=== PATIENT | male | born 1965 ===

== ENCOUNTER 2017-02-15 12:11 | Emergency (ER) | payer OTHER ==
[2017-02-15 12:16] VITALS: BP 147/77; PULSE 71; RESP 16; TEMP 97.1; O2SAT 98
--- NOTE | 2017-02-15 12:45 | ED PDOC ---
HPI: Wound Care - HPI Time Seen by Provider: 02/15/17 12:16 Chief Complaint (Nursing): Trauma Chief Complaint (Provider): Head Injury History Per: Patient History Of Present Illness: Trevor Webb, a 51 year old male presents to the with an injury to his head. The patient states that while he was at work a piece of metal fell on his head and he sustained a laceration. Patient is unsure of whether or not his tetanus is up to date. Denies loss of consciousness. Exam Limitations: no limitations Onset/Duration Of Symptoms: Hrs Current Symptoms Are (Timing): Still Present Quality Of Symptoms: Painful Severity: Moderate Pain Scale Rating Of: 6 Additional Complaint(s): Pt denies headache and states the scalp is hurting. No nausea or vomiting. Past Medical History Reviewed: Historical Data, Nursing Documentation, Vital Signs Vital Signs: Last Vital Signs Temp 97.1 F L 02/15/17 12:14 Pulse 71 02/15/17 12:14 Resp 16 02/15/17 12:14 BP 147/77 02/15/17 12:14 Pulse Ox 98 02/15/17 12:14 - Medical History PMH: No Chronic Diseases - Surgical History Surgical History: No Surg Hx - Family History Family History: States: No Known Family Hx - Living Arrangements Living Arrangements: With Family - Social History Current smoker - smoking cessation education provided: No Alcohol: None Drugs: Denies - Immunization History Hx Tetanus Toxoid Vaccination: No Hx Influenza Vaccination: No - Allergies Allergies/Adverse Reactions: Allergies Allergy/AdvReac Type Severity Reaction Status Date / Time No Known Allergies Allergy Verified 02/15/17 12:14 Review of Systems ROS Statement: Except As Marked, All Systems Reviewed And Found Negative Musculoskeletal: Positive for: Other (laceration to head.) Physical Exam - Reviewed Nursing Documentation Reviewed: Yes Vital Signs Reviewed: Yes - Physical Exam Appears: Positive for: Well, Non-toxic, No Acute Distress Head Exam: Positive for: NORMAL INSPECTION, NORMOCEPHALIC. Negative for: ATRAUMATIC (Laceration) Skin: Positive for: Warm. Negative for: Normal Color (5 cm laceration) Eye Exam: Positive for: EOMI, Normal appearance, PERRL ENT: Positive for: Normal ENT Inspection Neck: Positive for: Normal Respiratory: Negative for: Accessory Muscle Use, Respiratory Distress Back: Positive for: Normal Inspection Rectal: Positive for: Deferred Extremity: Positive for: Normal ROM, Other (Stregnth 5/5 bilateral ) Neurologic/Psych: Positive for: Alert, financial sales assistant II-XII (Cranial nerves intact), Oriented, Mood/Affect, Cerebellar Tests (cerebellar tests are normal..), Gait. Negative for: Motor/Sensory Deficits, Aphasia, Facial Droop - ECG O2 Sat by Pulse Oximetry: 98 (RA) Pulse Ox Interpretation: Normal Procedure: Wound Repair - Time Performed Time Performed: 12:40 - Time Out Time Out: Side verified, Site verified, Patient ID confirmed, Sterile procedures obs. - Consent Obtained Consent obtained: Verbal - Performed by Performed by: Mid-level Provider (Varsha Buchanan PA-C) - Indications Indication(s):: Laceration - Location Location:: Scalp Shape:: Linear Dimensions Length cm: 5cm - Debris Debris:: None - Complexity Complexity:: Simple (one layer) - Wound repair method Sutures:: # (3) - Patient tolerated procedure Patient Tolerated Procedure:: Well Medical Decision Making Medical Decision Makin Initial Impression: 51 year old male presenting with a laceration to his head Initial Plan: * Adacel 0.5ml IM * Reevaluation 1253 Wound care performed patient tolerated procedure well. See procedure note for details. Patient is medically stable and will be discharged home. Scribe Attestation Documented by Martha Gordon acting as a scribe for Varsha Buchanan PA-C. Scribe Attestation All medical record entries made by the Scribe were at my direction and personally dictated by me. I have reviewed the chart and agree that the record accurately reflects my personal performance of the history, physical exam, medical decision making, and the department course for this patient. I have also personally directed, reviewed, and agree with the discharge instructions and disposition. Disposition - Clinical Impression Clinical Impression: Tetanus toxoid vaccination administered at current visit, Scalp laceration, Head injury - Patient ED Disposition Is Patient to be Admitted: No Counseled Patient/Family Regarding: Studies Performed - Disposition Referrals: [facility] [Outside] formerly [facility] [Outside] Disposition: Routine/Home Disposition Time: 13:14 Condition: GOOD Additional Instructions: Do not get wet for 24-48 hours. Keep clean and dry with antibiotic ointment. Staple removal in 8-10 days. Return sooner for signs of infection including increased pain, redness or drainage Instructions: Staple Care (ED) Forms: [employer] [place] (Russian) Print Language: FRENCH
== END 2017-02-15 13:57 | disposition home or self-care (01) ==
LOC: H.ER 12:11
DX: S01.01XA Laceration without foreign body of scalp, initial encounter (principal); Z23 Encounter for immunization; S09.90XA Unspecified injury of head, initial encounter; W20.8XXA Other cause of strike by thrown, projected or falling object, initial encounter; Y99.0 Civilian activity done for income or pay

== ENCOUNTER 2017-02-18 13:10 | Emergency (ER) | payer OTHER ==
[2017-02-18 13:31] VITALS: BP 125/71; PULSE 82; RESP 16; TEMP 97.6; O2SAT 97
--- NOTE | 2017-02-18 14:09 | ED PDOC ---
HPI: Wound Care - HPI Time Seen by Provider: 02/18/17 13:32 Chief Complaint (Nursing): Wound Check Chief Complaint (Provider): Wound check History Per: Patient History Of Present Illness: Trevor Webb, a 51 year old male with an injury to his head. The patient states that while he was at work a piece of metal fell on his head and he sustained a laceration. Denies loss of consciousness. Exam Limitations: no limitations Onset/Duration Of Symptoms: Days Current Symptoms Are (Timing): Still Present Quality Of Symptoms: Itching Additional Complaint(s): The patient is a 51yo male, presents to the ED for evaluation of a laceration on his scalp sustained 3 days ago. Patient was seen in this facility and had stitches placed; patient states he is concerned of an infection because the site of the laceration has been pruritic. He denies any fever, chills, loss of consciousness or new injuries to the site. Patient offers no additional medical complaints. Past Medical History Reviewed: Historical Data, Nursing Documentation, Vital Signs Vital Signs: Last Vital Signs Temp 97.6 F 02/18/17 13:29 Pulse 82 02/18/17 13:29 Resp 16 02/18/17 13:29 BP 125/71 02/18/17 13:29 Pulse Ox 97 02/18/17 13:29 - Medical History PMH: No Chronic Diseases - Surgical History Surgical History: No Surg Hx - Family History Family History: States: Unknown Family Hx - Social History Current smoker - smoking cessation education provided: No Alcohol: None Drugs: Denies - Immunization History Hx Tetanus Toxoid Vaccination: No Hx Influenza Vaccination: No - Home Medications Home Medications: Ambulatory Orders Medication Instructions Recorded Cephalexin [cephalexin] 500 mg PO Q6 #28 cap 02/18/17 - Allergies Allergies/Adverse Reactions: Allergies Allergy/AdvReac Type Severity Reaction Status Date / Time No Known Allergies Allergy Verified 02/15/17 12:14 Review of Systems ROS Statement: Except As Marked, All Systems Reviewed And Found Negative Constitutional: Negative for: Fever, Chills Neurological: Positive for: Other (loss of consciousness, laceration on scalp) Physical Exam - Reviewed Nursing Documentation Reviewed: Yes Vital Signs Reviewed: Yes - Physical Exam Appears: Positive for: Non-toxic, No Acute Distress Head Exam: Negative for: ATRAUMATIC (5cm laceration on scalp with minimal wound dehissence; [address]; no surrounding erythema, edema or discharge noted.) Skin: Positive for: Normal Color Eye Exam: Positive for: Normal appearance Neck: Positive for: Normal Cardiovascular/Chest: Positive for: Regular Rate, Rhythm Respiratory: Positive for: Normal Breath Sounds. Negative for: Accessory Muscle Use, Respiratory Distress Neurologic/Psych: Positive for: Alert, Oriented. Negative for: Motor/Sensory Deficits - ECG O2 Sat by Pulse Oximetry: 97 (RA) Pulse Ox Interpretation: Normal - Progress ED Course And Treament: CT head w/o contrast: negative. Medical Decision Making Medical Decision Making: Time: 1335 Impression: Wound care Plan: -- CT Head w/o contrast Reassess Scribe Attestation: Documented by Yuly Walker acting as a scribe for AMY Morgan Provider Attestation: All medical record entries made by the Scribe were at my direction and personally dictated by me. I have reviewed the chart and agree that the record accurately reflects my personal performance of the history, physical exam, medical decision making, and the department course for this patient. I have also personally directed, reviewed, and agree with the discharge instructions and disposition. Disposition - Clinical Impression Clinical Impression: Visit for wound check - Patient ED Disposition Is Patient to be Admitted: No - Disposition Disposition: Routine/Home Disposition Time: 14:38 Condition: STABLE Prescriptions: Cephalexin [cephalexin] 500 mg PO Q6 #28 cap Instructions: Staple Care (ED) Forms: [employer] (Lithuanian) Print Language: PANAMANIAN
--- NOTE | 2017-02-18 14:32 | CT ---
PROCEDURE: CT HEAD WITHOUT CONTRAST. HISTORY: trauma, [address] COMPARISON: None available. TECHNIQUE: Axial computed tomography images were obtained through the head/brain without intravenous contrast. Radiation dose: Total exam DLP = 866 mGy-cm. This CT exam was performed using one or more of the following dose reduction techniques: Automated exposure control, adjustment of the mA and/or kV according to patient size, and/or use of iterative reconstruction technique. FINDINGS: HEMORRHAGE: No intracranial hemorrhage. BRAIN: Overall cerebral density is appreciated normal throughout, with the brainstem and cerebellar density unremarkable as well. There is no mass effect or intracranial hemorrhage. There is no edema pattern appreciated throughout. No suspicious extra-axial collection. VENTRICLES: Unremarkable. No hydrocephalus. CALVARIUM: Unremarkable. PARANASAL SINUSES: Mild multifocal ethmoid sinus disease appreciate as well as left sphenoid sinus delete disease. MASTOID AIR CELLS: Mild left mastoiditis not excluded. None is seen the right. OTHER FINDINGS: None. IMPRESSION: No acute intracranial findings identified. No fracture or intracranial hemorrhage. Bilateral ethmoid and left sphenoid sinusitis is appreciated mildly. Should symptoms persist or worsen consider follow-up MRI or CT as indicated.
== END 2017-02-18 15:19 | disposition home or self-care (01) ==
LOC: H.ER 13:10
DX: Z48.00 Encounter for change or removal of nonsurgical wound dressing (principal); J32.3 Chronic sphenoidal sinusitis

== ENCOUNTER 2017-02-25 09:37 | Emergency (ER) | payer OTHER ==
[2017-02-25 09:56] VITALS: BP 127/72; PULSE 72; RESP 19; TEMP 98.8; O2SAT 99
--- NOTE | 2017-02-25 10:29 | ED PDOC ---
HPI: Wound Care - HPI Time Seen by Provider: 02/25/17 10:27 Chief Complaint (Nursing): Suture/Staple Removal Chief Complaint (Provider): STAPLE REMOVAL History Per: Patient (51 Y/O MALE HERE FOR REMOVAL OF STAPLE. DENIES ANY COMPLAINTS.) Past Medical History Reviewed: Historical Data, Nursing Documentation, Vital Signs Vital Signs: Last Vital Signs Temp 98.8 F 02/25/17 09:54 Pulse 72 02/25/17 09:54 Resp 19 02/25/17 09:54 BP 127/72 02/25/17 09:54 Pulse Ox 99 02/25/17 09:54 - Family History Family History: States: Unknown Family Hx - Immunization History Hx Tetanus Toxoid Vaccination: No Hx Influenza Vaccination: No - Home Medications Home Medications: Ambulatory Orders Medication Instructions Recorded No Known Home Med 02/25/17 - Allergies Allergies/Adverse Reactions: Allergies Allergy/AdvReac Type Severity Reaction Status Date / Time No Known Allergies Allergy Verified 02/15/17 12:14 Review of Systems ROS Statement: Except As Marked, All Systems Reviewed And Found Negative Physical Exam - Reviewed Nursing Documentation Reviewed: Yes Vital Signs Reviewed: Yes - Physical Exam Appears: Positive for: Well, Non-toxic, No Acute Distress Head Exam: Positive for: NORMAL INSPECTION, NORMOCEPHALIC. Negative for: ATRAUMATIC (STAPLE INTACT; NO SIGNS OF INFECTION) Skin: Positive for: Normal Color, Warm, DRY Eye Exam: Positive for: EOMI, Normal appearance, PERRL ENT: Positive for: Normal ENT Inspection Neck: Positive for: Normal, Painless ROM Cardiovascular/Chest: Positive for: Regular Rate, Rhythm Respiratory: Positive for: CNT, Normal Breath Sounds Gastrointestinal/Abdominal: Positive for: Normal Exam, Bowel Sounds, Soft Back: Positive for: Normal Inspection Extremity: Positive for: Normal ROM Neurologic/Psych: Positive for: Alert, Oriented - ECG O2 Sat by Pulse Oximetry: 99 - Progress ED Course And Treament: STAPLE REMOVED WITHOUT DIFFICULTY Disposition - Clinical Impression Clinical Impression: Removal of staple - Patient ED Disposition Is Patient to be Admitted: No - Disposition Referrals: [facility] [Outside] Disposition: Routine/Home Disposition Time: 10:28 Condition: FAIR Instructions: Stitches Removal (ED) Forms: [employer] (Italian) Print Language: NIUEAN
== END 2017-02-25 10:56 | disposition home or self-care (01) ==
LOC: H.ER 09:37
DX: Z48.02 Encounter for removal of sutures (principal)